=== PATIENT | female | born 1960 | race Caucasian/White ===

== ENCOUNTER 2018-12-23 15:04 | Observation (INO) ==
[2018-12-23] MEDS ORDERED: DROPERIDOL 5 MG/2 ML IVP ONE (15:32)
[2018-12-23] MEDS ORDERED: 0.9 % Sodium Chloride 1,000 ML IVC ONE (15:32)
[2018-12-23] MEDS ORDERED: Ketorolac 30 MG/ML VIAL IVP ONE (15:32)
[2018-12-23] MEDS ORDERED: *HR* FentaNYL (PF) 100 MCG/2 ML VIAL IVP ONE ×2 (15:32→18:13)
--- NOTE | 2018-12-23 15:43 | Emergency Department Note ---
Disposition Clinical Impression: Intractable back pain Intractable vomiting with nausea Qualifiers: Vomiting type: unspecified Qualified Code(s): R11.2 - Nausea with vomiting, unspecified Disposition: Admitted As Inpatient Condition: Fair Referrals: NONE,PCP [Non-Partnered Physician] - Forms: ED Satisfaction Letter Time of Disposition: 17:18 Back Pain HPI - General Chief Complaint: ED Back Pain/Injury Stated Complaint: mid back pain Time Seen by Provider: 12/23/18 15:18 Source: patient Mode of arrival: private vehicle Limitations: no limitations Nursing Notes Reviewed: Yes Vital Signs Reviewed: Yes - History of Present Illness Pt Subjective Complaint: back pain Onset (ago): hour(s) (This current episode started in the early hours of the morning and woke her up from sleep. However she been having trouble with this 3 and 4 times a month for years.) Duration: constant Similar Symptoms Previously: Yes (Multiple, multiple times) Location: thoracic spine, Other (Right side of thoracic back) Pain Severity: severe Quality: sharp Radiation: none Improves with: none Worsens with: none Context: other (Woke her from sleep) Associated symptoms: Reports: other (Nausea and at times pain is so severe she throws up) Treatments prior to arrival: other (Massage therapy) - Related Data Home Medications Medication Instructions Recorded Confirmed Aspirin 81 mg PO DAILY 05/24/15 12/23/18 Atorvastatin Calcium [Lipitor] 80 mg PO DAILY #0 05/24/15 12/23/18 Insulin ASPART [NovoLOG] 10 units SQ TIDAC PRN 05/24/15 12/23/18 Insulin Glargine,Hum.rec.anlog 40 unit SQ QAM 05/24/15 12/23/18 [Lantus Solostar] Metoprolol [Lopressor] 25 mg PO BID 05/24/15 12/23/18 Basaglar Kwikpen U-100 45 unit SQ BID 05/24/18 12/23/18 Previous Rx's Medication Instructions Recorded Promethazine [Phenergan] 25 mg PO Q6HR PRN #12 tablet 10/07/18 Allergies Allergy/AdvReac Type Severity Reaction Status Date / Time codeine AdvReac Vomiting Verified 12/23/18 15:04 All systems ED: reviewed and negative except as stated. Constitutional: Denies: fever, chills ENT ED: Denies: ear pain, throat pain, congestion Cardiovascular: Denies: chest pain, palpitations Respiratory: Denies: cough, dyspnea Gastrointestinal: Reports: nausea, vomiting. Denies: abdominal pain Genitourinary: Denies: urgency, dysuria, frequency Musculoskeletal: Reports: back pain Integumentary: Denies: rash Neurological: Denies: headache, weakness, numbness Past Medical History - Past Medical History Attestation: Yes The following information was validated with the patient. Source: patient, old records reviewed, obtained from family, nursing notes reviewed Medical history: Reports: arthritis, atrial fibrillation, cancer, cardiomyopathy, COPD, coronary artery disease, diabetes, GERD, glaucoma, hyperlipidemia, hypertension, migraine, myocardial infarction, osteoporosis, peripheral artery disease, RA, other Surgical history: Reports: angioplasty/stent (Cardiac stent 2), , cancer surgery (LEEP), cataract, cholecystectomy, other (Normal EGD in 2013 in 2016) Psychiatric history: Reports: panic disorder [employer] history: Reports: bilateral tubal ligation - Social History Smoking Status: Former smoker Smokeless Tobacco Status: No Alcohol use: Reports: none Drug use: Reports: marijuana, other Physical Exam - General Limitations: no limitations General appearance: alert, in no apparent distress - Head Head exam: atraumatic, normocephalic, normal inspection - Eye Eye exam: Present: normal appearance, PERRL, EOMI. Absent: scleral icterus, conjunctival injection - ENT ENT exam: normal exam, normal oropharynx, mucous membranes moist, normal external ear exam - Neck Neck exam: Present: normal inspection, full ROM, trachea midline. Absent: tenderness - Chest Chest inspection: Present: normal inspection, symmetric chest wall rise. Absent: tenderness - Respiratory Respiratory exam: Present: normal lung sounds bilaterally. Absent: respiratory distress, wheezes - Cardiovascular Cardiovascular exam: Present: regular rate, normal rhythm, normal heart sounds - Abdominal Exam Abdominal exam: Present: soft, Non-Tender, normal bowel sounds - Extremities Exam Extremities exam: Present: normal inspection. Absent: pedal edema - Back Exam Back exam: Present: normal inspection, full ROM. Absent: tenderness - Neurological Exam Neurological exam: Present: alert, oriented X3. Absent: motor sensory deficit - Psychiatric Psychiatric exam: Present: normal affect, normal mood - Skin Skin exam: Present: warm, dry. Absent: rash Course Course Narrative: Patient presents with a complaint of back pain. This is not a new problem for the patient. She has had it several times a month every month for the past few years. Looking at the old records she is had an extremely extensive workup done including CT to rule out aortic dissection and CT to look at pulmonary embolism and ABDOMINAL WORKUP AND NOTHING IS EVER BEEN FOUND A CAUSE. The patient is extremely histrionic here in the emergency department. She ambulated without any problem. Neurologic examination is fine. I cannot reproduce the discomfort. I really do not know what her issue is either. It has been going on For years and many many people have tried to evaluated and no 1 has been able to generate a final diagnosis. I am not sure I will be able to to find a diagnosis either. I will get her some medications for symptom relief. I will do some workup. Disposition will be based on diagnostic results and reevaluation. I will give her fentanyl and Toradol for pain. I am going to give her Haldol because I think that will help with the nausea and I think will help with the emotional component of her presentation. - Reevaluation(s) Reevaluation #1: The workup is unremarkable. Patient is still having severe pain and still retching and belching. I cannot make a diagnosis on this chronic problem but the problem is I can control her symptoms either. I am going to admit her to the hospital. Re: Spoke with the hospitalist, Dr. Atkinson, and he accepted the patient for admission to manage the intractable pain and intractable vomiting. Time: 17:17 Vital Signs Temperature 97.3 F L 12/23/18 15:06 Pulse Rate 89 12/23/18 15:06 Respiratory Rate 18 12/23/18 15:06 Blood Pressure 190/84 12/23/18 15:06 O2 Sat by Pulse Oximetry 95 12/23/18 15:06 Temperature 97.3 F L 12/23/18 15:06 Pulse Rate 87 12/23/18 16:07 Respiratory Rate 18 12/23/18 16:07 Blood Pressure 189/83 12/23/18 16:07 O2 Sat by Pulse Oximetry 95 12/23/18 16:07 Oxygen Delivery Oxygen Delivery Room Air Back Pain/Injury - Medical Records Medical records reviewed: Yes I reviewed the patient's medical records. - Lab Data Lab results reviewed: Yes I reviewed the patient's lab results. Result diagrams: 12/23/18 15:48 12/23/18 15:48 Lab Results 12/23/18 12/23/18 12/23/18 Range/Units 15:48 15:48 15:48 WBC 13.5 H (4.3-11.1) K/mcL RBC 4.54 (3.82-4.97) M/mcL Hgb 13.8 (11.5-15.4) g/dL Hct 42.1 (35.3-44.9) % MCV 92.7 (83.0-100.0) fL MCH 30.4 (28.0-33.3) pg MCHC 32.8 (31.6-35.5) g/dL RDW 14.2 (11.5-14.5) % Plt Count 162 (140-400) K/mcL MPV 11.8 (9.4-12.4) fL Immature Gran % 0.3 (0-4) % Seg Neutrophils % 83.2 % Lymphocytes % 13.2 % Monocytes % 2.4 % Eosinophils % 0.4 % Basophils % 0.5 % Neutrophils # 11.2 H (1.6-8.9) K/mcL Lymphocytes # 1.8 (0.6-4.6) K/mcL Monocytes # 0.3 (0.0-1.3) K/mcL Eosinophils # 0.1 (0.0-0.6) K/mcL Basophils # 0.1 (0.0-0.2) K/mcL Sodium 141 (136-145) mEq/L Potassium 4.1 (3.5-5.1) mEq/L Chloride 101 (98-107) mEq/L Carbon Dioxide 31 H (23-29) mEq/L BUN 25 H (8-23) mg/dL Creatinine 1.01 (0.60-1.20) mg/dL Est GFR ( Amer) > 60 (> 60) Est GFR (Non-Af Amer) 56 L (> 60) BUN/Creatinine Ratio 25 (6-26) Glucose 226 H (70-105) mg/dL Calculated Osmolality 303 H (280-300) Lactic Acid 1.1 (0.5-2.2) mmol/L Calcium 10.1 (8.6-10.3) mg/dL Total Bilirubin 0.5 (0.3-1.0) mg/dL Direct Bilirubin 0.0 (0.0-0.2) mg/dL Indirect Bilirubin 0.5 (0.0-1.2) mg/dL AST 19 (13-39) Units/L ALT 14 (7-52) Units/L Alkaline Phosphatase 123 H (34-104) Units/L Troponin I 0.03 (< 0.04) ng/mL Serum Total Protein 8.1 (6.4-8.9) g/dL Albumin 4.3 (3.5-5.7) g/dL Globulin 3.8 H (2.4-3.5) g/dL Albumin/Globulin Ratio 1.1 (1.1-2.2) Lipase 41 (11-82) Units/L - Radiology Data Radiology results reviewed: Yes I reviewed the patient's radiology results. - EKG Data EKG attestation: Yes I reviewed and interpreted this EKG. EKG results narrative: Twelve-lead EKG performed at 1530 9 PM. Ordered, reviewed and interpreted by ED physician shows sinus rhythm at a rate of 85. Normal axis. Good hour progression across the precordium. No acute ischemic changes. Intervals are within normal limits.
[2018-12-23] MEDS ORDERED: Haloperidol Lactate 5 MG/ML VIAL IVP ONE (15:49)
[2018-12-23 15:53] LABS: Basophils # 0.1 K/mcL (0.0-0.2); Basophils % 0.5 %; Eosinophils # 0.1 K/mcL (0.0-0.6); Eosinophils % 0.4 %; Hematocrit 42.1 % (35.3-44.9); Hemoglobin 13.8 g/dL (11.5-15.4); Immature Granulocytes % 0.3 % (0-4); Lymphocytes # 1.8 K/mcL (0.6-4.6); Lymphocytes % 13.2 %; Mean Corpuscular HGB Conc 32.8 g/dL (31.6-35.5); Mean Corpuscular Hemoglobin 30.4 pg (28.0-33.3); Mean Corpuscular Volume 92.7 fL (83.0-100.0); Mean Platelet Volume 11.8 fL (9.4-12.4); Monocytes # 0.3 K/mcL (0.0-1.3); Monocytes % 2.4 %; Neutrophils # 11.2 K/mcL (1.6-8.9); Platelet Count 162 K/mcL (140-400); Red Blood Count 4.54 M/mcL (3.82-4.97); Red Cell Distribution Width 14.2 % (11.5-14.5); Segmented Neutrophils % 83.2 %; White Blood Count 13.5 K/mcL (4.3-11.1)
[2018-12-23 16:10] LABS: Alanine Aminotransferase 14 Units/L (7-52); Albumin 4.3 g/dL (3.5-5.7); Albumin/Globulin Ratio 1.1 (1.1-2.2); Alkaline Phosphatase 123 Units/L (34-104); Aspartate Amino Transferase 19 Units/L (13-39); BUN/Creatinine Ratio 25 (6-26); Bilirubin,Indirect 0.5 mg/dL (0.0-1.2); Bilirubin,Total 0.5 mg/dL (0.3-1.0); Blood Urea Nitrogen 25 mg/dL (8-23); Calcium 10.1 mg/dL (8.6-10.3); Carbon Dioxide 31 mEq/L (23-29); Chloride 101 mEq/L (98-107); Globulin 3.8 g/dL (2.4-3.5); Glucose 226 mg/dL (70-105); Lipase 41 Units/L (11-82); Osmolality,Calculated 303 (280-300); Potassium 4.1 mEq/L (3.5-5.1); Sodium 141 mEq/L (136-145); Total Protein 8.1 g/dL (6.4-8.9); eGFR For African Americans > 60 (> 60); eGFR For Non-African Americans 56 (> 60)
[2018-12-23 16:15] LABS: Troponin I 0.03 ng/mL (< 0.04)
[2018-12-23] MEDS ORDERED: Naloxone 0.4 MG/ML INJ IVP PRN (18:05)
[2018-12-23] MEDS ORDERED: INSULIN ASPART 10 UNIT SQ PRN (18:05)
[2018-12-23] MEDS ORDERED: Ringers Solution, Lactated 1,000 ML IVC SCH (18:05)
[2018-12-23] MEDS ORDERED: Ondansetron 4 MG/2 ML VIAL IVP ONE (18:13)
[2018-12-23] MEDS ORDERED: Dextrose Gel 15 GM/37.5 ML TUBE PO PRN ×2 (18:45)
[2018-12-23] MEDS ORDERED: *HR* Dextrose 50 % in Water (Vial) 50 ML VIAL IVP PRN (18:45)
[2018-12-23] MEDS ORDERED: D5% in Water 1,000 ML IVC PRN (18:45)
[2018-12-23] MEDS ORDERED: *HR* HYDROcodone/Acet 5/325 mg TABLET PO PRN ×2 (18:57→22:51)
[2018-12-23] MEDS ORDERED: *HR* OxyCODONE Oral Soln 5 MG/5 ML UD.LIQ PO PRN (19:00)
[2018-12-23] MEDS: *HR* Promethazine 25 MG/ML VIAL IVP PRN (20:14)
[2018-12-23] MEDS: Insulin DETEMIR 100 UNIT/ML X5UNITS SQ SCH (20:14)
[2018-12-23] MEDS: Insulin LISPRO 300 UNITS/3 ML VIAL SQ SCH (20:22)
[2018-12-23] MEDS ORDERED: BASAGLAR U SQ SCH (21:00)
[2018-12-23] MEDS: *HR* HYDROcodone/Acet 5/325 mg TABLET PO PRN (23:18)
[2018-12-24] MEDS: *HR* Promethazine 25 MG/ML VIAL IVP PRN ×4 (01:32→20:07)
[2018-12-24] MEDS: *HR* HYDROcodone/Acet 5/325 mg TABLET PO PRN ×4 (03:30→21:09)
[2018-12-24] MEDS: Insulin DETEMIR 100 UNIT/ML X5UNITS SQ SCH ×2 (08:15→21:10)
[2018-12-24] MEDS: Aspirin 81 MG TAB.CHEW PO SCH (08:16)
[2018-12-24] MEDS: Insulin LISPRO 300 UNITS/3 ML VIAL SQ SCH ×4 (08:16→20:11)
--- NOTE | 2018-12-24 12:15 | Internal Med History&Physical ---
Date of Encounter: 12/24/18 Time of Encounter: 11:35 Assessment and Plan (1) Gastroenteritis Current visit: No Status: Acute IV fluids have been ordered. Antiemetics will be given as needed. (2) Azotemia Current visit: Yes Status: Acute Likely secondary to vomiting and diarrhea. IV fluids have been ordered. Labs will be monitored. (3) ASHD (arteriosclerotic heart disease) Current visit: No Status: Chronic Continue aspirin, Lipitor, and Lopressor. (4) Intractable back pain Current visit: Yes Status: Chronic Present since approximately 2012. Etiology undetermined. Internal Medicine - H&P: HPI Chief complaint: Vomiting, diarrhea, back pain. Admitted From: Emergency Dept Plans for Post Hospital Care: Home History of present illness: Ms. Taylor is a 58 year old female came to emergency room stating she had onset of vomiting and diarrhea approximately 0300 the day of admission. She denies visible blood in the vomitus or diarrhea. She denies fevers or chills. She was evaluated emergency room and was admitted to [facility] floor for ongoing care needs. She was hospitalized for similar complaints in April and June 2016. She reports she has had several episodes similar to this previously since undergoing cholecystectomy in 2012. She had EGD in 2013 and again in early 2015 without significant pathology seen. She had colonoscopy in 2013 with 2 colon polyps removed but otherwise no significant pathology noted. She had MRI of the abdomen 11/24/2014 which showed a stable left adrenal adenoma and stable benign pancreatic body cyst measuring 3 mm. She had a nuclear medicine gastric emptying study December 2015 which showed minimal delay in emptying at 4 hours postprandial. Abdominal/pelvic CT 10/07/2018 showed stable left adrenal mass unchanged from December 2016 but no acute findings to explain her abdominal/back pain. Past Med Surg Social Fam HX - Past Medical History Medical history: arthritis, atrial fibrillation, cancer, cardiomyopathy, COPD, coronary artery disease, diabetes, GERD, glaucoma, hyperlipidemia, hypertension, migraine, myocardial infarction, osteoporosis, peripheral artery disease, RA, other Additional medical history: Cervical cancer, Psychiatric history: panic disorder - Past Surgical History Surgical History: angioplasty/stent, , cancer surgery, cataract, cholecystectomy, other Additional surgical history: Triple Bypass 2017 - Social History Smoking Status: Former smoker Smokeless Tobacco Status: No Alcohol use: none Drug use: marijuana, other - Family History Father Adopted: No Family Member Ethnicity: Non- Living Status: Hx Family Cardiac Disorders: Yes ([place] at 58) Hx Family Respiratory Disorders: No Hx Family Cancer: No Hx Family GI Disorders: No Hx Family Endocrine Disorder: No Hx Family Neuromuscular Disorders: No Hx Family Neurologic Disorders: No Hx Family HEENT Disorders: No Hx Family Autoimmune Disorders: No Mother Adopted: No Family Member Ethnicity: Non- Living Status: Hx Family Cardiac Disorders: No Hx Family Respiratory Disorders: Yes Hx Family Cancer: Yes (Brain cancer) Hx Family GI Disorders: No Hx Family Endocrine Disorder: No Hx Family Neuromuscular Disorders: No Hx Family Neurologic Disorders: No Hx Family HEENT Disorders: No Hx Family Autoimmune Disorders: No Internal Medicine - H&P: Meds Aspirin 81 mg PO DAILY 05/24/15 [History] Atorvastatin Calcium [Lipitor] 80 mg PO DAILY #0 05/24/15 [History] Insulin ASPART [NovoLOG] 10 units SQ TIDAC PRN 05/24/15 [History] Insulin Glargine,Hum.rec.anlog [Lantus Solostar] 40 unit SQ QAM 05/24/15 [History] Metoprolol [Lopressor] 25 mg PO BID 05/24/15 [History] Basaglar Kwikpen U-100 45 unit SQ BID 05/24/18 [History] Promethazine [Phenergan] 25 mg PO Q6HR PRN #12 tablet 10/07/18 [Rx] Allergy/AdvReac Type Severity Reaction Status Date / Time codeine AdvReac Vomiting Verified 12/23/18 15:04 All Systems PM: A 10-system review of systems was performed and is negative for pertinent findings except as documented above in the HPI. Review of systems: Uterus systems from her June 2016 [facility] hospitalization were reviewed and revised as below. Gen.: Her weight has increased from 82.1 kg June 2016 to 86.636 kg on admission now. Cardiovascular: She has history of hypertension and known ASHD status post [place] in 1999 and in October 2014. She had heart catheterizations after each infarct and has a total of [address]. She reports having 3 vessel CABG surgery at [facility] January 2017. She denies heart failure DVT or pulmonary embolus Respiratory: She smoked from age [age] up to 3 packs per day. She does not have documented chronic lung disease and does not wear home oxygen. She has not been tested for sleep apnea. GI: As per history of present illness : She denies hematuria dysuria or kidney stones Neurologic: She denies large distribution strokes or seizures Endocrine: She was diagnosed DM 2 approximately 2000. She has hyperlipidemia and denies known thyroid disease Hematology/oncology: She had cervical cancer and was treated with a LEEP procedure many years ago which apparently was curative. She denies other internal malignancies, blood disorders or anemia Psychiatric: She denies anxiety depression or other mental health issues Musculoskeletal: She has diagnoses of DJD and rheumatoid arthritis. - Constitutional Vitals: Temp Pulse Resp BP Pulse Ox 98.5 F 81 16 181/79 97 12/24/18 10:00 12/24/18 10:00 12/24/18 10:00 12/24/18 10:12/24/18 10:00 Exam: Gen.: She is a well-developed well-nourished female sitting in bed who is nauseated and occasionally having dry heaves during the exam HEENT: Head is atraumatic and normocephalic. Eyes: EOMI. There is no scleral icterus. Mouth: Mucosa is moist. Neck: Supple and nontender. There is no thyromegaly or adenopathy noted. Heart: Regular without murmurs gallops or ectopics Lungs: No wheezes or crackles are heard. Abdomen: Bowel sounds are diminished. The abdomen is nontender to palpation. No masses or guarding are noted. Extremities: There is no cyanosis edema or clubbing noted. Dorsalis pedis and posterior tibial pulses are 1-2 over 2 bilaterally. Neurologic: Mental status: She is talkative and a good historian. Cranial nerves: Smile is symmetric. Forehead wrinkles bilaterally. Tongue protrudes midline. EOMI. Motor: There is no pronator drift. Cerebellar: Finger to nose is intact bilaterally. Skin: Warm and dry Internal Med - H&P Results - Labs CBC & Chem 7: 12/23/18 15:48 12/23/18 15:48 Labs: Short CBC 12/23/18 Range/Units 15:48 WBC 13.5 H (4.3-11.1) K/mcL Hgb 13.8 (11.5-15.4) g/dL Hct 42.1 (35.3-44.9) % Plt Count 162 (140-400) K/mcL Neutrophils # 11.2 H (1.6-8.9) K/mcL BMP 12/23/18 15:48 Sodium 141 Potassium 4.1 Chloride 101 Carbon Dioxide 31 H BUN 25 H Creatinine 1.01 Glucose 226 H Calcium 10.1 Cardiac Enzymes 12/23/18 Range/Units 15:48 Troponin I 0.03 (< 0.04) ng/mL Liver Function 12/23/18 Range/Units 15:48 Total Bilirubin 0.5 (0.3-1.0) mg/dL Direct Bilirubin 0.0 (0.0-0.2) mg/dL AST 19 (13-39) Units/L ALT 14 (7-52) Units/L Alkaline Phosphatase 123 H (34-104) Units/L Albumin 4.3 (3.5-5.7) g/dL - Impressions ITS Impressions Chest X-Ray 12/23/18 15:31 IMPRESSION: No acute cardiopulmonary process. D/ / Dami Lazar MD / Dami Lazar MD Interpreting Provider: Dami Lazar MD
--- NOTE | 2018-12-24 12:25 | Electrocardiograph Report ---
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
[2018-12-24] MEDS ORDERED: Methyl Salicylate/Menthol 28 GM TUBE TP PRN (19:40)
[2018-12-25] MEDS: *HR* Promethazine 25 MG/ML VIAL IVP PRN (06:27)
[2018-12-25 07:10] LABS: Basophils # 0.1 K/mcL (0.0-0.2); Basophils % 0.4 %; Eosinophils # 0.1 K/mcL (0.0-0.6); Eosinophils % 0.7 %; Hematocrit 38.6 % (35.3-44.9); Hemoglobin 13.3 g/dL (11.5-15.4); Immature Granulocytes % 0.3 % (0-4); Lymphocytes # 4.9 K/mcL (0.6-4.6); Lymphocytes % 31.5 %; Mean Corpuscular HGB Conc 34.5 g/dL (31.6-35.5); Mean Platelet Volume 11.3 fL (9.4-12.4); Monocytes # 1.1 K/mcL (0.0-1.3); Neutrophils # 9.3 K/mcL (1.6-8.9); Platelet Count 136 K/mcL (140-400); Red Blood Count 4.29 M/mcL (3.82-4.97); Segmented Neutrophils % 60.1 %; White Blood Count 15.5 K/mcL (4.3-11.1)
[2018-12-25 07:14] LABS: Bilirubin,Urine Negative (Negative); Blood,Urine Moderate (Negative); Clarity,Urine Clear (Clear); Color,Urine Yellow (Yellow); Glucose,Urine (UA) Normal (Normal); Ketones,Urine Negative (Negative); Leukocyte Esterase,Urine Negative (Negative); Nitrite,Urine Negative (Negative); Protein,Urine >=300 mg/dL (Neg-Trace); Urobilinogen,Urine Normal (Normal)
[2018-12-25] MEDS: Insulin LISPRO 300 UNITS/3 ML VIAL SQ SCH ×2 (07:14→11:48)
[2018-12-25 07:26] LABS: Amphetamine Screen,Urine Negative ng/mL (Cutoff=1000); Barbiturate Screen,Urine Negative ng/mL (Cutoff=200); Benzodiazepines Screen,Urine Positive ng/mL (Cutoff=200); Cannabinoid Screen,Urine Positive ng/mL (Cutoff = 50); Cocaine Screen,Urine Negative ng/mL (Cutoff= 300); Opiate Screen,Urine Positive ng/mL (Cutoff=300); Phencyclidine Screen,Urine Negative ng/mL (Cutoff=25)
[2018-12-25 07:37] LABS: Potassium 2.9 mEq/L (3.5-5.1)
[2018-12-25 08:05] LABS: RBC,Urine 15-30 per hpf (0-3); WBC,Urine 0-3 per hpf (0-3)
[2018-12-25 08:06] LABS: Bacteria,Urine Few per hpf (None-Few); Squamous Epithelial Cell,Urine Few per lpf (None-Few)
[2018-12-25 08:13] LABS: BUN/Creatinine Ratio 25 (6-26); Blood Urea Nitrogen 22 mg/dL (8-23); Calcium 8.9 mg/dL (8.6-10.3); Carbon Dioxide 32 mEq/L (23-29); Chloride 98 mEq/L (98-107); Glucose 60 mg/dL (70-105); Magnesium 1.5 mg/dL (1.6-2.6); Osmolality,Calculated 287 (280-300); Phosphorous 2.9 mg/dL (2.7-4.5); Sodium 138 mEq/L (136-145); eGFR For African Americans > 60 (> 60); eGFR For Non-African Americans > 60 (> 60)
[2018-12-25 08:26] VITALS: BP 158/78
[2018-12-25] MEDS: Aspirin 81 MG TAB.CHEW PO SCH (08:26)
[2018-12-25] MEDS: Insulin DETEMIR 100 UNIT/ML X5UNITS SQ SCH (09:37)
--- NOTE | 2018-12-25 14:41 | Discharge Summary ---
Orders not resulted at time of discharge: Pending orders 12/25/18 03:50 Culture,Urine [RM] Routine Date of Encounter: 12/25/18 Time of Encounter: 14:30 - Discharge Diagnosis (1) Gastroenteritis Priority: Primary Status: Acute (2) Azotemia Priority: Secondary Status: Resolved (3) ASHD (arteriosclerotic heart disease) Priority: Secondary Status: Chronic (4) Intractable back pain Priority: Secondary Status: Chronic Hospital course: Ms. Taylor is a 58 year old female who came to emergency room stating she had onset of vomiting and diarrhea approximately 0300 the day of admission. She denies visible blood in the vomitus or diarrhea. She denies fevers or chills. She was evaluated in emergency room and was admitted to [facility] for ongoing care needs. Initial orders were written by the emergency room physician. I saw her on December 24 and performed a history and physical. She was given IV fluids. Anti-emetics were given as needed. When I saw her on December 25 she reported vomiting and diarrhea had resolved. She had tolerated adequate amounts of oral food and fluid intake. She wished to be discharged home which I felt was reasonable. Potassium level had decreased to 2.9 the morning of December 25. She was given oral and IV potassium supplementation and her level improved to 3.5 by time of discharge. Magnesium level was minimally abnormal at 1.5. Her PCP can monitor labs and prescribe further treatment is needed. She will follow with her PCP Manoj Jay CNP within 1 week. - Time Spent with Patient Total time spent providing and/or coordinating discharge services: - Discharge Medications Prescriptions: Continued Metoprolol [Lopressor] 25 mg PO BID Atorvastatin Calcium [Lipitor] 80 mg PO DAILY #0 Insulin Glargine,Hum.rec.anlog [Lantus Solostar] 40 unit SQ QAM Aspirin 81 mg PO DAILY Insulin ASPART [NovoLOG] 10 units SQ TIDAC PRN PRN Reason: Blood Sugar - High Basaglar Kwikpen U-100 45 unit SQ BID Promethazine [Phenergan] 25 mg PO Q6HR PRN #12 tablet PRN Reason: Nausea Home Medications: Aspirin 81 mg PO DAILY 05/24/15 [History] Atorvastatin Calcium [Lipitor] 80 mg PO DAILY #0 05/24/15 [History] Insulin ASPART [NovoLOG] 10 units SQ TIDAC PRN 10/28/15 [History] Insulin Glargine,Hum.rec.anlog [Lantus Solostar] 40 unit SQ QAM 05/24/15 [History] Metoprolol [Lopressor] 25 mg PO BID 05/24/15 [History] Basaglar Kwikpen U-100 45 unit SQ BID 05/24/18 [History] Promethazine [Phenergan] 25 mg PO Q6HR PRN #12 tablet 10/07/18 [Rx] Allergies/Adverse Reactions: Allergy/AdvReac Type Severity Reaction Status Date / Time codeine AdvReac Vomiting Verified 12/23/18 15:04 Date of admission: 12/23/18 17:57 Primary care physician: Manoj Jay CNP - Constitutional Vitals: Temp Pulse Resp BP Pulse Ox 97.6 F 73 17 158/78 92 12/25/18 07:12 12/25/18 08:25 12/25/18 07:12 12/25/18 08:25 12/25/18 07:12 - Patient Status Disposition: Home, Self-Care Condition: Fair - Discharge Instructions Follow Up With: Manoj Jay CNP [Primary Care Provider] - 1 week - Diet and Activity Activity: resume usual activities as tolerated Diet: advance to your usual diet
== END 2018-12-25 14:30 | disposition home or self-care (01) ==
LOC: EMEROOPIK 15:04 → INPPIK 15:04
PROVIDERS: ADMIT Internal Medicine; ATTEND Internal Medicine

== ENCOUNTER 2019-03-22 11:48 | Observation (INO) ==
[2019-03-22] MEDS ORDERED: *HR* HYDROmorphone (PF) 1 MG/ML SYRINGE IVP ONE (12:03)
[2019-03-22] MEDS ORDERED: 0.9 % Sodium Chloride 1,000 ML IVC ONE (12:03)
[2019-03-22] MEDS ORDERED: Ondansetron 4 MG/2 ML VIAL IVP ONE (12:03)
--- NOTE | 2019-03-22 12:03 | Emergency Department Note ---
Disposition Clinical Impression: Intractable back pain Intractable vomiting with nausea Qualifiers: Vomiting type: unspecified Qualified Code(s): R11.2 - Nausea with vomiting, unspecified Disposition: Admitted As Inpatient Condition: Fair Referrals: Manoj Jay CNP [Primary Care Provider] - Forms: ED Satisfaction Letter Time of Disposition: 13:39 General Adult HPI - General Chief complaint: ED Abdominal Pain Stated complaint: vomiting and back pain Time Seen by Provider: 03/22/19 11:55 Source: patient Mode of arrival: private vehicle Limitations: no limitations Nursing Notes Reviewed: Yes Vital Signs Reviewed: Yes - History of Present Illness HPI Narrative: Patient reports she has a history of chronic low back pain has been much worse since slipping and falling into a seated position at about 2:00 yesterday afternoon. She relates concurrently for today she is been having some diarrhea without blood or mucus. She has started having nausea and vomiting since 3 AM. This is exacerbated the pain in her back such that she cannot get any relief with topical applications, massage or her usual medicines. She denies any ill exposures. She denies foodborne illness concerns or recent antibiotics or travel. She denies fevers or chills. She is not having chest pain, cough or shortness of breath. She states her abdomen is sore from the vomiting but no other abdominal pain. With inability control the pain and continued nausea and dry heaving she has come in for evaluation with family. Onset (ago): day(s) (1) Location: back, abdomen Pain Severity: severe Pain Scale: 10 Quality: aching, sharp Consistency: constant Improves with: nothing Worsens with: movement Associated symptoms: Reports: loss of appetite, malaise, nausea/vomiting. Denies: confusion, chest pain, cough, diaphoresis, fever/chills, headaches, rash, seizure, shortness of breath, syncope, weakness Treatments Prior to Arrival: none - Related Data Home Medications Medication Instructions Recorded Confirmed Aspirin 81 mg PO DAILY 05/24/15 12/23/18 Atorvastatin Calcium [Lipitor] 80 mg PO DAILY #0 05/24/15 12/23/18 Insulin ASPART [NovoLOG] 10 units SQ TIDAC PRN 05/24/15 12/23/18 Insulin Glargine,Hum.rec.anlog 40 unit SQ QAM 05/24/15 12/23/18 [Lantus Solostar] Metoprolol [Lopressor] 25 mg PO BID 05/24/15 12/23/18 Basaglar Kwikpen U-100 45 unit SQ BID 05/24/18 12/23/18 Metoclopramide [Reglan] 10 mg PO 03/22/19 Allergies Allergy/AdvReac Type Severity Reaction Status Date / Time codeine AdvReac Vomiting Verified 03/22/19 11:49 All systems ED: reviewed and negative except as stated. Past Medical History - Past Medical History Attestation: Yes The following information was validated with the patient. Source: patient, old records reviewed, obtained from family, nursing notes reviewed Medical history: Reports: arthritis, atrial fibrillation, cancer, cardiomyopathy, COPD, coronary artery disease, diabetes, GERD, glaucoma, hyperlipidemia, hypertension, migraine, myocardial infarction, osteoporosis, peripheral artery disease, RA, other (Chronic low back pain) Surgical history: Reports: angioplasty/stent, , cancer surgery, cataract, cholecystectomy, other Psychiatric history: Reports: panic disorder [employer] history: Reports: bilateral tubal ligation - Social History Smoking Status: Former smoker Smokeless Tobacco Status: No Alcohol use: Reports: none Drug use: Reports: marijuana, other Physical Exam - General Limitations: no limitations General appearance: alert, in distress - Head Head exam: atraumatic, normocephalic, normal inspection - Eye Eye exam: Present: normal appearance, PERRL, EOMI - ENT ENT exam: normal exam, normal oropharynx, mucous membranes moist - Neck Neck exam: Present: normal inspection, full ROM, trachea midline - Chest Chest inspection: Present: normal inspection, symmetric chest wall rise. Absent: tenderness - Respiratory Respiratory exam: Present: normal lung sounds bilaterally. Absent: respiratory distress, wheezes, prolonged expiratory phase - Cardiovascular Cardiovascular exam: Present: regular rate, normal rhythm, tachycardia, normal heart sounds - Abdominal Exam Abdominal exam: Present: soft, normal bowel sounds. Absent: distention, guarding, rebound, rigidity Abdominal tenderness: Present: diffuse, mild - Extremities Exam Extremities exam: Present: normal inspection, full ROM, normal capillary refill. Absent: tenderness, pedal edema - Expanded Lower Extremity Exam Neurovascular/Tendon exam: Present: normal capillary refill Gait: observed and normal, antalgic - Back Exam Back exam: Present: normal inspection, paraspinal tenderness, vertebral tend erness - Neurological Exam Neurological exam: Present: alert, oriented X3, normal gait. Absent: motor sensory deficit - Psychiatric Psychiatric exam: Present: agitated, anxious - Skin Skin exam: Present: warm, dry, intact, normal color. Absent: diaphoresis, pallor Course Course Narrative: 1325: With return of all testing, the patient is still vomiting. She notes she has been like this number of times it improves with continued IV fluids and inpatient care. I have reviewed the records and it has been about 3 months since she required admission. We are checking for bed availability with plan to call Dr. Atkinson to discuss inpatient observation if beds are available. 1333: Care has been discussed with Dr. Atkinson. Verbal orders have been obtained for the patient's observation. Vital Signs Temperature 98.4 F 03/22/19 11:51 Pulse Rate 102 03/22/19 11:51 Respiratory Rate 22 03/22/19 11:51 Blood Pressure 155/77 03/22/19 11:51 O2 Sat by Pulse Oximetry 93 03/22/19 11:51 Temperature 98.4 F 03/22/19 12:00 Pulse Rate 102 03/22/19 12:00 Respiratory Rate 22 03/22/19 12:00 Blood Pressure 155/77 03/22/19 12:00 O2 Sat by Pulse Oximetry 93 03/22/19 12:00 Oxygen Delivery Oxygen Delivery Room Air Medical Decision Making - Medical Records Medical records reviewed: Yes I reviewed the patient's medical records. - Lab Data Lab results reviewed: Yes I reviewed the patient's lab results. Result diagrams: 03/22/19 12:14 03/22/19 12:14 Lab Results 03/22/19 03/22/19 03/22/19 Range/Units 12:00 12:00 12:14 WBC 16.8 H (4.3-11.1) K/mcL RBC 4.28 (3.82-4.97) M/mcL Hgb 13.0 (11.5-15.4) g/dL Hct 40.4 (35.3-44.9) % MCV 94.4 (83.0-100.0) fL MCH 30.4 (28.0-33.3) pg MCHC 32.2 (31.6-35.5) g/dL RDW 14.3 (11.5-14.5) % Plt Count 155 (140-400) K/mcL MPV 11.8 (9.4-12.4) fL Immature Gran % 0.6 (0-4) % Seg Neutrophils % 84.1 % Lymphocytes % 11.3 % Monocytes % 2.7 % Eosinophils % 0.8 % Basophils % 0.5 % Neutrophils # 14.1 H (1.6-8.9) K/mcL Lymphocytes # 1.9 (0.6-4.6) K/mcL Monocytes # 0.5 (0.0-1.3) K/mcL Eosinophils # 0.1 (0.0-0.6) K/mcL Basophils # 0.1 (0.0-0.2) K/mcL Sodium (136-145) mEq/L Potassium (3.5-5.1) mEq/L Chloride (98-107) mEq/L Carbon Dioxide (23-29) mEq/L BUN (8-23) mg/dL Creatinine (0.60-1.20) mg/dL Est GFR ( Amer) (> 60) Est GFR (Non-Af Amer) (> 60) BUN/Creatinine Ratio (6-26) Glucose (70-105) mg/dL Calculated Osmolality (280-300) Calcium (8.6-10.3) mg/dL Total Bilirubin (0.3-1.0) mg/dL Direct Bilirubin (0.0-0.2) mg/dL Indirect Bilirubin (0.0-1.2) mg/dL AST (13-39) Units/L ALT (7-52) Units/L Alkaline Phosphatase (34-104) Units/L Serum Total Protein (6.4-8.9) g/dL Albumin (3.5-5.7) g/dL Globulin (2.4-3.5) g/dL Albumin/Globulin Ratio (1.1-2.2) Amylase (29-103) Units/L Lipase (11-82) Units/L Urine Color Yellow (Yellow) Urine Clarity Clear (Clear) Urine pH 5.0 (5.0-8.0) pH Units Ur Specific [place] >= 1.030 H (1.010-1.025) Urine Protein 100 H (Neg-Trace) mg/dL Urine Glucose (UA) Normal (Normal) mg/dL Urine Ketones Trace H (Negative) mg/dL Urine Blood Large H (Negative) Urine Nitrite Negative (Negative) Urine Bilirubin Negative (Negative) Urine Urobilinogen Normal (Normal) mg/dL Ur Leukocyte Esterase Negative (Negative) Urine Microscopic RBC 5-15 H (0-3) per hpf Urine Microscopic WBC 3-5 H (0-3) per hpf Ur Squamous Epith Cells Moderate H (None-Few) per lpf Urine Bacteria Few (None-Few) per hpf Hyaline Casts Few (None-Few) per lpf Urine Mucus Few (Few) Ur Culture Indicated? YES A (NO) Urine Opiates Screen Positive H (Ifhfuv=888) ng/mL Ur Buprenorphine Scrn Negative (Cutoff=5) ng/mL Ur Oxycodone Screen Negative (Cutoff= 100) ng/mL Ur Barbiturates Screen Negative (Htkjpm=919) ng/mL Ur Phencyclidine Scrn Negative (Cutoff=25) ng/mL Ur Amphetamines Screen Negative (Ophsxc=9535) ng/mL U Benzodiazepines Scrn Negative (Nujbed=567) ng/mL Urine Cocaine Screen Negative (Cutoff= 300) ng/mL U Marijuana (THC) Screen Positive H (Cutoff = 50) ng/mL Ur Drug Screen Interp See Below 03/22/19 Range/Units 12:14 WBC (4.3-11.1) K/mcL RBC (3.82-4.97) M/mcL Hgb (11.5-15.4) g/dL Hct (35.3-44.9) % MCV (83.0-100.0) fL MCH (28.0-33.3) pg MCHC (31.6-35.5) g/dL RDW (11.5-14.5) % Plt Count (140-400) K/mcL MPV (9.4-12.4) fL Immature Gran % (0-4) % Seg Neutrophils % % Lymphocytes % % Monocytes % % Eosinophils % % Basophils % % Neutrophils # (1.6-8.9) K/mcL Lymphocytes # (0.6-4.6) K/mcL Monocytes # (0.0-1.3) K/mcL Eosinophils # (0.0-0.6) K/mcL Basophils # (0.0-0.2) K/mcL Sodium 143 (136-145) mEq/L Potassium 4.1 (3.5-5.1) mEq/L Chloride 106 (98-107) mEq/L Carbon Dioxide 29 (23-29) mEq/L BUN 36 H (8-23) mg/dL Creatinine 1.23 H (0.60-1.20) mg/dL Est GFR ( Amer) 54 L (> 60) Est GFR (Non-Af Amer) 45 L (> 60) BUN/Creatinine Ratio 29 H (6-26) Glucose 197 H (70-105) mg/dL Calculated Osmolality 310 H (280-300) Calcium 9.8 (8.6-10.3) mg/dL Total Bilirubin 0.4 (0.3-1.0) mg/dL Direct Bilirubin 0.1 (0.0-0.2) mg/dL Indirect Bilirubin 0.3 (0.0-1.2) mg/dL AST 25 (13-39) Units/L ALT 20 (7-52) Units/L Alkaline Phosphatase 118 H (34-104) Units/L Serum Total Protein 7.3 (6.4-8.9) g/dL Albumin 4.2 (3.5-5.7) g/dL Globulin 3.1 (2.4-3.5) g/dL Albumin/Globulin Ratio 1.4 (1.1-2.2) Amylase 45 (29-103) Units/L Lipase 28 (11-82) Units/L Urine Color (Yellow) Urine Clarity (Clear) Urine pH (5.0-8.0) pH Units Ur Specific [place] (1.010-1.025) Urine Protein (Neg-Trace) mg/dL Urine Glucose (UA) (Normal) mg/dL Urine Ketones (Negative) mg/dL Urine Blood (Negative) Urine Nitrite (Negative) Urine Bilirubin (Negative) Urine Urobilinogen (Normal) mg/dL Ur Leukocyte Esterase (Negative) Urine Microscopic RBC (0-3) per hpf Urine Microscopic WBC (0-3) per hpf Ur Squamous Epith Cells (None-Few) per lpf Urine Bacteria (None-Few) per hpf Hyaline Casts (None-Few) per lpf Urine Mucus (Few) Ur Culture Indicated? (NO) Urine Opiates Screen (Fhvlua=567) ng/mL Ur Buprenorphine Scrn (Cutoff=5) ng/mL Ur Oxycodone Screen (Cutoff= 100) ng/mL Ur Barbiturates Screen (Awwztz=124) ng/mL Ur Phencyclidine Scrn (Cutoff=25) ng/mL Ur Amphetamines Screen (Qmywzh=3562) ng/mL U Benzodiazepines Scrn (Hrmqxh=798) ng/mL Urine Cocaine Screen (Cutoff= 300) ng/mL U Marijuana (THC) Screen (Cutoff = 50) ng/mL Ur Drug Screen Interp - Radiology Data Radiology results reviewed: Yes I reviewed the patient's radiology results. CT is performed of the abdomen and pelvis without IV or oral contrast. This shows the basal lungs be free of infiltrates, effusion or mass. The liver, spleen and pancreas appear normal. Kidneys shows some stranding without evidence for hydroureter or stone. Aorta is normal in caliber. Bowel is without acute inflammatory change, obstruction or perforation. Spinous without compression, acute disc space protrusion nor spondylolysis/listhesis. This is on my interpretation. Impressions Abdomen/Pelvis CT 03/22/19 12:03 IMPRESSION: No acute intra-abdominal abnormality identified. Specifically no traumatic injury identified. No finding worrisome for metastatic disease on the noncontrast images. D/ / Luis Enrique Lindsey MD / Luis Enrique Lindsey MD Interpreting Provider: Luis Enrique Lindsey MD
[2019-03-22 12:05] LABS: Bilirubin,Urine Negative (Negative); Blood,Urine Large (Negative); Clarity,Urine Clear (Clear); Color,Urine Yellow (Yellow); Glucose,Urine (UA) Normal (Normal); Ketones,Urine Trace mg/dL (Negative); Leukocyte Esterase,Urine Negative (Negative); Nitrite,Urine Negative (Negative); Protein,Urine 100 mg/dL (Neg-Trace); Specific Gravity,Urine >= 1.030 (1.010-1.025); Urobilinogen,Urine Normal (Normal)
[2019-03-22 12:13] LABS: Bacteria,Urine Few per hpf (None-Few); Hyaline Casts,Urine Few per lpf (None-Few); Mucus,Urine Few (Few); Squamous Epithelial Cell,Urine Moderate per lpf (None-Few)
[2019-03-22] MEDS ORDERED: 0.9 % Sodium Chloride 1,000 ML IVC SCH ×2 (12:15→14:14)
[2019-03-22 12:20] LABS: Basophils # 0.1 K/mcL (0.0-0.2); Basophils % 0.5 %; Eosinophils # 0.1 K/mcL (0.0-0.6); Eosinophils % 0.8 %; Hematocrit 40.4 % (35.3-44.9); Immature Granulocytes % 0.6 % (0-4); Lymphocytes # 1.9 K/mcL (0.6-4.6); Lymphocytes % 11.3 %; Mean Corpuscular HGB Conc 32.2 g/dL (31.6-35.5); Mean Corpuscular Hemoglobin 30.4 pg (28.0-33.3); Mean Corpuscular Volume 94.4 fL (83.0-100.0); Mean Platelet Volume 11.8 fL (9.4-12.4); Monocytes # 0.5 K/mcL (0.0-1.3); Monocytes % 2.7 %; Neutrophils # 14.1 K/mcL (1.6-8.9); Platelet Count 155 K/mcL (140-400); Red Blood Count 4.28 M/mcL (3.82-4.97); Red Cell Distribution Width 14.3 % (11.5-14.5); Segmented Neutrophils % 84.1 %; White Blood Count 16.8 K/mcL (4.3-11.1)
[2019-03-22 12:21] LABS: Amphetamine Screen,Urine Negative ng/mL (Cutoff=1000); Barbiturate Screen,Urine Negative ng/mL (Cutoff=200); Benzodiazepines Screen,Urine Negative ng/mL (Cutoff=200); Cannabinoid Screen,Urine Positive ng/mL (Cutoff = 50); Cocaine Screen,Urine Negative ng/mL (Cutoff= 300); Opiate Screen,Urine Positive ng/mL (Cutoff=300); Phencyclidine Screen,Urine Negative ng/mL (Cutoff=25)
[2019-03-22 12:32] LABS: Albumin 4.2 g/dL (3.5-5.7); Albumin/Globulin Ratio 1.4 (1.1-2.2); Bilirubin,Direct 0.1 mg/dL (0.0-0.2); Bilirubin,Indirect 0.3 mg/dL (0.0-1.2); Bilirubin,Total 0.4 mg/dL (0.3-1.0); Calcium 9.8 mg/dL (8.6-10.3); Globulin 3.1 g/dL (2.4-3.5); Potassium 4.1 mEq/L (3.5-5.1); Total Protein 7.3 g/dL (6.4-8.9)
[2019-03-22] MEDS ORDERED: *HR* Promethazine 25 MG/ML VIAL IVP ONE (13:29)
[2019-03-22] MEDS ORDERED: *HR* Dextrose 50 % in Water (Syg) 50 ML SYRINGE IVP PRN (14:14)
[2019-03-22] MEDS ORDERED: Naloxone 0.4 MG/ML INJ IVP PRN (14:14)
[2019-03-22] MEDS ORDERED: Ondansetron 4 MG/2 ML VIAL IVP PRN (14:14)
[2019-03-22] MEDS ORDERED: Dextrose Gel 15 GM/37.5 ML TUBE PO PRN ×2 (14:14)
[2019-03-22] MEDS ORDERED: *HR* Promethazine 25 MG/ML VIAL IVP PRN (14:14)
[2019-03-22] MEDS ORDERED: D5% in Water 1,000 ML IVC PRN (14:14)
[2019-03-22] MEDS ORDERED: Acetaminophen 325 MG TABLET PO PRN (15:22)
[2019-03-22] MEDS: Ondansetron 4 MG/2 ML VIAL IVP PRN ×2 (15:46→22:09)
[2019-03-22] MEDS: Insulin LISPRO 300 UNITS/3 ML VIAL SQ SCH (17:04)
[2019-03-22] MEDS ORDERED: Ondansetron ODT 4 MG TAB.RAPDIS SL PRN (17:49)
[2019-03-22] MEDS: *HR* Promethazine 25 MG/ML VIAL IVP PRN (19:23)
--- NOTE | 2019-03-22 19:31 | Internal Med History&Physical ---
Date of Encounter: 03/22/19 Time of Encounter: 19:00 Assessment and Plan (1) Gastroenteritis Current visit: No Status: Acute IV fluids have been ordered. Antibiotics will be given as needed. (2) Azotemia Current visit: No Status: Acute IV fluids have been ordered. Recheck labs in a.m. (3) Intractable back pain Current visit: Yes Status: Chronic Workup has shown no etiology to date. (4) Leukocytosis Current visit: Yes Status: Chronic Present on all 38 CBC tests done since February 2014. Neutrophilia variably present. Qualifiers: Leukocytosis type: unspecified Qualified Code(s): D72.829 - Elevated white blood cell count, unspecified (5) Hypomagnesemia Current visit: Yes Status: Acute Magnesium level 1.5 on 12/25/2018. Recheck in a.m. (6) Diarrhea Current visit: No Status: Chronic IV fluids have been ordered. Lactoferrin will be ordered. Additional studies will be done if diarrhea persists. Qualifiers: Diarrhea type: unspecified type Qualified Code(s): R19.7 - Diarrhea, unsp ecified (7) ASHD (arteriosclerotic heart disease) Current visit: No Status: Chronic Status post 5 stents placed. Continue Plavix and Lopressor. (8) Diabetic gastroparesis Current visit: No Status: Suspected Reglan will be held since she is getting IV Phenergan for nausea. Internal Medicine - H&P: HPI Chief complaint: Vomiting, diarrhea, and back pain Admitted From: Emergency Dept Plans for Post Hospital Care: Home History of present illness: Ms. Taylor is a 58 year old female who came to emergency room stating she had 2 day history of multiple episodes of nonbloody diarrhea. She reports vomiting onset stay with several episodes of nonbloody emesis. She had some abdominal discomfort and acute worsening of chronic back pain. She came to emergency room was evaluated and found to have acute renal insufficiency and leukocytosis with left shift. She was admitted to [facility] floor for ongoing care needs. She was hospitalized for similar complaints November 2018 as well as April and June 2016. She reports she has had several episodes similar to this previously since undergoing cholecystectomy in 2012. She had EGD in 2013 and again in early 2015 without significant pathology seen. She had colonoscopy in 2013 with 2 colon polyps removed but otherwise no significant pathology noted. She had MRI of the abdomen 11/24/2014 which showed a stable left adrenal adenoma and stable benign pancreatic body cyst measuring 3 mm. She had a nuclear medicine gastric emptying study December 2015 which showed minimal delay in emptying at 4 hours postprandial. Abdominal/pelvic CT in the ER showed no acute findings to explain her abdominal/back pain. She has had 8 abdominal/pelvic CT scans since April 2015. She reports low back pain has also been present since approximately 2012. Thoracic spine MRI April 2016 showed mild degenerative changes with small disc herniations in the mid thoracic spine. CT of thoracic spine 01/08/2017 showed no acute abnormalities. She states she was referred to pain clinic few years ago but did not keep the appointment. She has diagnoses of DJD and rheumatoid arthritis. Past Med Surg Social Fam HX - Past Medical History Medical history: arthritis, atrial fibrillation, cancer, cardiomyopathy, COPD, coronary artery disease, diabetes, GERD, glaucoma, hyperlipidemia, hypertension, migraine, myocardial infarction, osteoporosis, peripheral artery disease, RA, other Additional medical history: Cervical cancer, Psychiatric history: panic disorder - Past Surgical History Surgical History: angioplasty/stent, , cancer surgery, cataract, cholecystectomy, other Additional surgical history: Triple Bypass 2017 - Social History Smoking Status: Former smoker Packs per day: 0 Smokeless Tobacco Status: No Alcohol use: none Drug use: marijuana, other - Family History Father Adopted: No Family Member Ethnicity: Non- Living Status: Hx Family Cardiac Disorders: Yes (OR at 58) Hx Family Respiratory Disorders: No Hx Family Cancer: No Hx Family GI Disorders: No Hx Family Endocrine Disorder: No Hx Family Neuromuscular Disorders: No Hx Family Neurologic Disorders: No Hx Family HEENT Disorders: No Hx Family Autoimmune Disorders: No Mother Adopted: No Family Member Ethnicity: Non- Living Status: Hx Family Cardiac Disorders: No Hx Family Respiratory Disorders: Yes Hx Family Cancer: Yes (Brain cancer) Hx Family GI Disorders: No Hx Family Endocrine Disorder: No Hx Family Neuromuscular Disorders: No Hx Family Neurologic Disorders: No Hx Family HEENT Disorders: No Hx Family Autoimmune Disorders: No Internal Medicine - H&P: Meds Albuterol Sulfate 90 mcg IH Q6H PRN 03/22/19 [History] Atorvastatin 80 mg PO DAILY 03/22/19 [History] Basaglar Kwikpen U-100 55 units SQ BID 03/22/19 [History] Furosemide 40 mg PO DAILY 03/22/19 [History] Gabapentin 600 mg PO TID 03/22/19 [History] Lisinopril-HCTZ 20-12.5 20 mg PO DAILY 03/22/19 [History] Metoclopramide 10 mg PO QID 03/22/19 [History] Metoprolol Tartrate 25 mg PO BID 03/22/19 [History] Novolog Flexpen 15 units SQ TID 03/22/19 [History] Omeprazole 20 mg PO DAILY 03/22/19 [History] Pioglitazone HCl 30 mg PO DAILY 03/22/19 [History] Plavix 75 mg PO DAILY 03/22/19 [History] Promethazine 25 mg PO Q6H PRN 03/22/19 [History] Zofran 4 mg SL Q4H PRN 03/22/19 [History] Allergy/AdvReac Type Severity Reaction Status Date / Time codeine AdvReac Vomiting Verified 03/22/19 11:49 All Systems PM: A 10-system review of systems was performed and is negative for pertinent findings except as documented above in the HPI. Review of systems: Review of systems from her November 2018 [facility] hospitalization were reviewed and revised as below. Gen.: Her weight increased from 82.1 kg June 2016 to 86.636 kg on admission November 2018 but has decreased to 82.1 kg today Cardiovascular: She has history of hypertension and known ASHD status post OR in 1999 and in October 2014. She had heart catheterizations after each infarct and has a total of [address]. She reports having 3 vessel CABG surgery at [facility] January 2017. She denies heart failure DVT or pulmonary embolus Respiratory: She smoked from age [age] up to 3 packs per day. She does not have documented chronic lung disease and does not wear home oxygen. She has not been tested for sleep apnea. GI: As per history of present illness : She denies hematuria dysuria or kidney stones Neurologic: She denies large distribution strokes or seizures Endocrine: She was diagnosed DM 2 approximately 2000. She has hyperlipidemia and denies known thyroid disease Hematology/oncology: She had cervical cancer and was treated with a LEEP procedure many years ago which apparently was curative. She denies other internal malignancies, blood disorders or anemia Psychiatric: She denies anxiety depression or other mental health issues Musculoskeletal: As per history of present illness - Constitutional Vitals: Temp Pulse Resp BP Pulse Ox 98.4 F 95 20 182/97 96 03/22/19 12:00 03/22/19 13:52 03/22/19 13:52 03/22/19 13:52 03/22/19 13:52 Exam: Gen.: She is a well-developed well-nourished female sitting on the side of bed who appears in [id number] distress and moaning in pain. When distracted however she appears to have significantly less pain. She had dry heaves occasionally during H&P. HEENT: Head is atraumatic and normocephalic. Eyes: EOMI. There is no scleral icterus. Mouth: Mucosa is moist. Neck: Supple and nontender. There is no thyromegaly or adenopathy noted. Heart: Regular without murmurs gallops or ectopics Lungs: No wheezes or crackles are heard. Abdomen: Soft and nontender. Bowel sounds are diminished. No masses or guarding are noted. Extremities: There is trace pitting edema of the left lower leg and no significant pitting edema of the right lower leg. Neurologic: Mental status: She is talkative and a good historian. Cranial nerves: Smile is symmetric. Forehead wrinkles bilaterally. Tongue protrudes midline. EOMI. Motor: She moves her arms and legs well randomly to observation without further formal testing done. Skin: Warm and dry Internal Med - H&P Results - Labs CBC & Chem 7: 03/22/19 12:14 03/22/19 12:14 Labs: Short CBC 03/22/19 Range/Units 12:14 WBC 16.8 H (4.3-11.1) K/mcL Hgb 13.0 (11.5-15.4) g/dL Hct 40.4 (35.3-44.9) % Plt Count 155 (140-400) K/mcL Neutrophils # 14.1 H (1.6-8.9) K/mcL BMP 03/22/19 12:14 Sodium 143 Potassium 4.1 Chloride 106 Carbon Dioxide 29 BUN 36 H Creatinine 1.23 H Glucose 197 H Calcium 9.8 Liver Function 03/22/19 Range/Units 12:14 Total Bilirubin 0.4 (0.3-1.0) mg/dL Direct Bilirubin 0.1 (0.0-0.2) mg/dL AST 25 (13-39) Units/L ALT 20 (7-52) Units/L Alkaline Phosphatase 118 H (34-104) Units/L Albumin 4.2 (3.5-5.7) g/dL Urine 03/22/19 Range/Units 12:00 Urine Color Yellow (Yellow) Urine Clarity Clear (Clear) Urine pH 5.0 (5.0-8.0) pH Units Ur Specific [place] >= 1.030 H (1.010-1.025) Urine Protein 100 H (Neg-Trace) mg/dL Urine Glucose (UA) Normal (Normal) mg/dL - Impressions ITS Impressions Abdomen/Pelvis CT 03/22/19 12:03 IMPRESSION: No acute intra-abdominal abnormality identified. Specifically no traumatic injury identified. No finding worrisome for metastatic disease on the noncontrast images. D/ / Luis Enrique Lindsey MD / Luis Enrique Lindsey MD Interpreting Provider: Luis Enrique Lindsey MD
[2019-03-22] MEDS: Gabapentin 300 MG CAPSULE PO SCH (19:45)
[2019-03-22] MEDS: 0.45 % Sodium Chloride w/KCl 20 MEQ/1,000 ML MLS IVC SCH (19:49)
[2019-03-22] MEDS ORDERED: Insulin DETEMIR 100 UNIT/ML per UNIT SQ ONE (21:00)
[2019-03-22] MEDS: *HR* LORazepam 2 MG/ML VIAL IVP PRN (23:35)
[2019-03-23] MEDS: 0.45 % Sodium Chloride w/KCl 20 MEQ/1,000 ML MLS IVC SCH ×2 (03:30→17:15)
[2019-03-23] MEDS: *HR* Promethazine 25 MG/ML VIAL IVP PRN ×2 (04:39→08:07)
[2019-03-23] MEDS: *HR* LORazepam 2 MG/ML VIAL IVP PRN (05:38)
[2019-03-23] MEDS: Ondansetron 4 MG/2 ML VIAL IVP PRN (05:38)
[2019-03-23 07:34] LABS: Basophils # 0.1 K/mcL (0.0-0.2); Basophils % 0.3 %; Eosinophils % 0.1 %; Hematocrit 41.2 % (35.3-44.9); Hemoglobin 13.7 g/dL (11.5-15.4); Immature Granulocytes % 0.5 % (0-4); Lymphocytes # 1.6 K/mcL (0.6-4.6); Lymphocytes % 9.6 %; Mean Corpuscular HGB Conc 33.3 g/dL (31.6-35.5); Mean Corpuscular Hemoglobin 31.2 pg (28.0-33.3); Mean Corpuscular Volume 93.8 fL (83.0-100.0); Mean Platelet Volume 12.7 fL (9.4-12.4); Monocytes # 0.9 K/mcL (0.0-1.3); Monocytes % 5.6 %; Platelet Count 130 K/mcL (140-400); Red Blood Count 4.39 M/mcL (3.82-4.97); Red Cell Distribution Width 13.9 % (11.5-14.5); Segmented Neutrophils % 83.9 %; White Blood Count 16.5 K/mcL (4.3-11.1)
[2019-03-23 07:40] LABS: Neutrophils # 13.8 K/mcL (1.6-8.9)
[2019-03-23 07:53] LABS: BUN/Creatinine Ratio 27 (6-26); Blood Urea Nitrogen 24 mg/dL (8-23); Calcium 9.6 mg/dL (8.6-10.3); Carbon Dioxide 28 mEq/L (23-29); Chloride 102 mEq/L (98-107); Glucose 206 mg/dL (70-105); Osmolality,Calculated 298 (280-300); Potassium 4.1 mEq/L (3.5-5.1); Sodium 139 mEq/L (136-145); eGFR For African Americans > 60 (> 60); eGFR For Non-African Americans > 60 (> 60)
[2019-03-23] MEDS: Insulin LISPRO 300 UNITS/3 ML VIAL SQ SCH ×6 (08:03→17:14)
[2019-03-23] MEDS: Gabapentin 300 MG CAPSULE PO SCH ×2 (08:06→17:42)
[2019-03-23 08:16] LABS: Magnesium 1.5 mg/dL (1.6-2.6); Phosphorous 2.2 mg/dL (2.7-4.5)
[2019-03-23] MEDS ORDERED: *HR* Pioglitazone 15 MG TABLET PO SCH (09:00)
[2019-03-23] MEDS ORDERED: Insulin DETEMIR 100 UNIT/ML X5UNITS SQ SCH (09:00)
[2019-03-23] MEDS ORDERED: hydroCHLOROthiazide 25 MG TABLET PO SCH (09:00)
[2019-03-23] MEDS ORDERED: Furosemide 40 MG TABLET PO SCH (09:00)
[2019-03-23] MEDS ORDERED: Lisinopril 20 MG TABLET PO SCH (09:00)
[2019-03-23] MEDS ORDERED: Magnesium Oxide 400 MG TABLET PO SCH (10:30)
[2019-03-23 10:32] LABS: Estimated Average Glucose 186 mg/dl
--- NOTE | 2019-03-23 10:52 | Internal Med Progress Note ---
Date of Encounter: 03/23/19 Time of Encounter: 10:20 - Assessment and plan (1) Gastroenteritis Current Visit: No Status: Acute Assessment and plan: March 23. IV fluids have been ordered. Anti-emetics will be given as needed. (2) Azotemia Current Visit: No Status: Acute Assessment and plan: March 23. BUN and creatinine have decreased 24 and 0.90 respectively with estimated GFR > 60. Continue IV fluids and monitor labs. (3) Intractable back pain Current Visit: Yes Status: Chronic Assessment and plan: March 23. Workup to date has not shown etiology. (4) Leukocytosis Current Visit: Yes Status: Chronic Assessment and plan: March 23. Chronic. Continue to monitor. Qualifiers: Leukocytosis type: unspecified Qualified Code(s): D72.829 - Elevated white blood cell count, unspecified (5) Hypomagnesemia Current Visit: Yes Status: Acute Assessment and plan: March 23. Magnesium level 1.5. Start supplemental magnesium oxide. (6) Diarrhea Current Visit: No Status: Chronic Assessment and plan: March 23. She did not mention this today. Continue to monitor. Qualifiers: Diarrhea type: unspecified type Qualified Code(s): R19.7 - Diarrhea, unspecified (7) ASHD (arteriosclerotic heart disease) Current Visit: No Status: Chronic Assessment and plan: March 23. Status post 5 stents placed. Continue Plavix and Lopressor. (8) Diabetic gastroparesis Current Visit: No Status: Suspected Assessment and plan: March 23. Continue IV Phenergan and hold Reglan. (9) Hypophosphatemia Current Visit: Yes Status: Acute Assessment and plan: March 23. Phosphorus level low at 2.2. Supplemental Neutra-Phos will be ordered. (10) DM type 2 (diabetes mellitus, type 2) Current Visit: Yes Status: Chronic Assessment and plan: March 23. Hemoglobin A1c 8.1%. Continue basal insulin, Actos, and Accu-Cheks with SSI. 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 No new problems have arisen. She reports she is still having dry heaves. Her back pain has slightly lessened. - Constitutional Vitals: Temp Pulse Resp BP Pulse Ox 98.8 F 84 16 174/92 96 03/23/19 10:42 03/23/19 10:42 03/23/19 10:42 03/23/19 10:42 03/23/19 10:42 Exam: She is sitting on the side of bed and appears in no acute distress. She is slightly lethargic from recent administration of Phenergan. I reviewed her medications and lab results. Internal Medicine: Result - Labs CBC & Chem 7: 03/23/19 07:24 03/23/19 07:24 Labs: Short CBC 03/22/19 03/23/19 Range/Units 12:14 07:24 WBC 16.8 H 16.5 H (4.3-11.1) K/mcL Hgb 13.0 13.7 (11.5-15.4) g/dL Hct 40.4 41.2 (35.3-44.9) % Plt Count 155 130 L (140-400) K/mcL Neutrophils # 14.1 H 13.8 H (1.6-8.9) K/mcL BMP 03/22/19 03/23/19 12:14 07:24 Sodium 143 139 Potassium 4.1 4.1 Chloride 106 102 Carbon Dioxide 29 28 BUN 36 H 24 H Creatinine 1.23 H 0.90 Glucose 197 H 206 H Calcium 9.8 9.6 Liver Function 03/22/19 Range/Units 12:14 Total Bilirubin 0.4 (0.3-1.0) mg/dL Direct Bilirubin 0.1 (0.0-0.2) mg/dL AST 25 (13-39) Units/L ALT 20 (7-52) Units/L Alkaline Phosphatase 118 H (34-104) Units/L Albumin 4.2 (3.5-5.7) g/dL Urine 03/22/19 Range/Units 12:00 Urine Color Yellow (Yellow) Urine Clarity Clear (Clear) Urine pH 5.0 (5.0-8.0) pH Units Ur Specific [place] >= 1.030 H (1.010-1.025) Urine Protein 100 H (Neg-Trace) mg/dL Urine Glucose (UA) Normal (Normal) mg/dL - Impressions Impressions Abdomen/Pelvis CT 03/22/19 12:03 IMPRESSION: No acute intra-abdominal abnormality identified. Specifically no traumatic injury identified. No finding worrisome for metastatic disease on the noncontrast images. D/ / Luis Enrique Lindsey MD / Luis Enrique Lindsey MD Interpreting Provider: Luis Enrique Lindsey MD Consult Discharge Plan - Plan Referrals: Manoj Jay CNP [Primary Care Provider] - 1 week
[2019-03-23 16:46] VITALS: BP 161/84
--- NOTE | 2019-03-23 19:21 | Discharge Summary ---
Orders not resulted at time of discharge: Pending orders 03/22/19 12:00 Culture,Urine [RM] Stat 03/23/19 10:54 Fecal Lactoferrin [RM] Routine Date of Encounter: 03/23/19 Time of Encounter: 19:10 - Discharge Diagnosis (1) Gastroenteritis Priority: Primary Status: Acute (2) Azotemia Priority: Secondary Status: Resolved (3) Intractable back pain Priority: Secondary Status: Chronic (4) Leukocytosis Priority: Secondary Status: Chronic Qualifiers: Leukocytosis type: unspecified Qualified Code(s): D72.829 - Elevated white blood cell count, unspecified (5) Hypomagnesemia Priority: Secondary Status: Acute (6) Diarrhea Priority: Secondary Status: Chronic Qualifiers: Diarrhea type: unspecified type Qualified Code(s): R19.7 - Diarrhea, unspecified (7) ASHD (arteriosclerotic heart disease) Priority: Secondary Status: Chronic (8) Diabetic gastroparesis Priority: Secondary Status: Suspected (9) Hypophosphatemia Priority: Secondary Status: Acute (10) DM type 2 (diabetes mellitus, type 2) Priority: Secondary Status: Chronic Qualifiers: 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 Taylor is a 58 year old female who came to emergency room stating she had 2 day history of multiple episodes of nonbloody diarrhea. She reports vomiting onset stay with several episodes of nonbloody emesis. She had some abdominal discomfort and acute worsening of chronic back pain. She came to emergency room was evaluated and found to have acute renal insufficiency and leukocytosis with left shift. She was admitted to [facility] floor for ongoing care needs. Initial orders were written by the emergency room physician. I saw her on March 22 and performed a history and physical. She was given IV fluids. Antiemetics were ordered for prn use. She felt slightly improved when I saw her on March 23. She still complained of having dry heaves. She did not report significant ongoing diarrhea. Lab work on March 23 showed WBC 16.5 with 83.9% segs. Review of past labs showed elevated WBC with variable neutrophilia on all 38 CBC tests since February 2014. Urine culture preliminary report at time of leaving AMA show gram- negative rods. Her PCP can follow up and treat as needed. BUN and creatinine improved to 24 and 0.90 respectively with estimated GFR> 60. Her phosphorus level returned low at 2.2. She was started on Neutra-Phos. Magnesium level returned slightly low at 1.5. She was started on magnesium oxide. On the afternoon of March 23 she decided she wished to go home and signed out AMA. I had encouraged her during the visit that morning to seek referral from her PCP to determine if possible the etiology of her recurrent episodes of vomiting and chronic elevated WBC. Her PCP can monitor magnesium, phosphorus, azotemia, and other labs. - Time Spent with Patient Total time spent providing and/or coordinating discharge services: - Discharge Medications Prescriptions: No Action Zofran 4 mg SL Q4H PRN PRN Reason: Nausea Promethazine 25 mg PO Q6H PRN PRN Reason: Nausea Plavix 75 mg PO DAILY Pioglitazone HCl 30 mg PO DAILY Omeprazole 20 mg PO DAILY Novolog Flexpen 15 units SQ TID Metoprolol Tartrate 25 mg PO BID Metoclopramide 10 mg PO QID Lisinopril-HCTZ 20-12.5 20 mg PO DAILY Gabapentin 600 mg PO TID Furosemide 40 mg PO DAILY Basaglar Kwikpen U-100 55 units SQ BID Atorvastatin 80 mg PO DAILY Albuterol Sulfate 90 mcg IH Q6H PRN PRN Reason: Shortness Of Breath/Wheezing Home Medications: Albuterol Sulfate 90 mcg IH Q6H PRN 03/22/19 [History] Atorvastatin 80 mg PO DAILY 03/22/19 [History] Basaglar Kwikpen U-100 55 units SQ BID 03/22/19 [History] Furosemide 40 mg PO DAILY 03/22/19 [History] Gabapentin 600 mg PO TID 03/22/19 [History] Lisinopril-HCTZ 20-12.5 20 mg PO DAILY 03/22/19 [History] Metoclopramide 10 mg PO QID 03/22/19 [History] Metoprolol Tartrate 25 mg PO BID 03/22/19 [History] Novolog Flexpen 15 units SQ TID 03/22/19 [History] Omeprazole 20 mg PO DAILY 03/22/19 [History] Pioglitazone HCl 30 mg PO DAILY 03/22/19 [History] Plavix 75 mg PO DAILY 03/22/19 [History] Promethazine 25 mg PO Q6H PRN 03/22/19 [History] Zofran 4 mg SL Q4H PRN 03/22/19 [History] Allergies/Adverse Reactions: Allergy/AdvReac Type Severity Reaction Status Date / Time codeine AdvReac Vomiting Verified 03/22/19 11:49 Date of admission: 03/22/19 13:50 Primary care physician: Manoj Jay CNP - Constitutional Vitals: Temp Pulse Resp BP Pulse Ox 98.0 F 88 16 161/84 98 03/23/19 14:44 03/23/19 14:44 03/23/19 14:44 03/23/19 14:44 03/23/19 14:44 - Patient Status Disposition: Left Against Medical Advice Condition: Fair - Discharge Instructions Follow Up With: Manoj Jay CNP [Primary Care Provider] - 1 week
== END 2019-03-23 18:25 | disposition left against medical advice (07) ==
LOC: EMEROOPIK 11:48 → INPPIK 11:48
PROVIDERS: ADMIT Internal Medicine; ATTEND Internal Medicine

== ENCOUNTER 2019-06-23 00:52 | Observation (INO) ==
[2019-06-23] MEDS ORDERED: 0.9 % Sodium Chloride 1,000 ML IVC ONE (01:19)
[2019-06-23] MEDS ORDERED: Ondansetron 4 MG/2 ML VIAL IVP ONE (01:19)
[2019-06-23 02:06] LABS: Basophils # 0.1 K/mcL (0.0-0.2); Basophils % 0.6 %; Eosinophils # 0.4 K/mcL (0.0-0.6); Eosinophils % 2.8 %; Hematocrit 35.7 % (35.3-44.9); Hemoglobin 11.8 g/dL (11.5-15.4); Immature Granulocytes % 0.6 % (0-4); Lymphocytes # 4.8 K/mcL (0.6-4.6); Lymphocytes % 31.4 %; Mean Corpuscular HGB Conc 33.1 g/dL (31.6-35.5); Mean Corpuscular Hemoglobin 31.7 pg (28.0-33.3); Mean Platelet Volume 12.4 fL (9.4-12.4); Monocytes # 1.3 K/mcL (0.0-1.3); Monocytes % 8.2 %; Neutrophils # 8.6 K/mcL (1.6-8.9); Platelet Count 110 K/mcL (140-400); Red Blood Count 3.72 M/mcL (3.82-4.97); Red Cell Distribution Width 13.4 % (11.5-14.5); Segmented Neutrophils % 56.4 %; White Blood Count 15.2 K/mcL (4.3-11.1)
[2019-06-23] MEDS ORDERED: Ondansetron ODT 4 MG TAB.RAPDIS SL ONE ×2 (02:14→03:12)
[2019-06-23 02:24] LABS: Albumin 3.7 g/dL (3.5-5.7); Albumin/Globulin Ratio 1.3 (1.1-2.2); Bilirubin,Indirect 0.4 mg/dL (0.0-1.0); Bilirubin,Total 0.4 mg/dL (0.3-1.0); Globulin 2.9 g/dL (2.4-3.5); Potassium 3.4 mEq/L (3.5-5.1); Total Protein 6.6 g/dL (6.4-8.9)
[2019-06-23] MEDS ORDERED: *HR* Dextrose 50 % in Water (Vial) 50 ML VIAL IVP PRN (03:12)
[2019-06-23] MEDS ORDERED: Dextrose Gel 15 GM/37.5 ML TUBE PO PRN ×2 (03:12)
[2019-06-23] MEDS ORDERED: 0.9 % Sodium Chloride 1,000 ML IVC SCH (03:12)
[2019-06-23] MEDS ORDERED: D5% in Water 1,000 ML IVC PRN (03:12)
[2019-06-23] MEDS ORDERED: Ondansetron 4 MG/2 ML VIAL IVP PRN (03:12)
[2019-06-23] MEDS ORDERED: Naloxone 0.4 MG/ML INJ IVP PRN (03:12)
[2019-06-23] MEDS ORDERED: Insulin LISPRO 300 UNITS/3 ML VIAL SQ SCH ×2 (07:30)
[2019-06-23] MEDS ORDERED: Ondansetron ODT 4 MG TAB.RAPDIS SL PRN (08:00)
[2019-06-23] MEDS ORDERED: *HR* Pioglitazone 15 MG TABLET PO SCH (09:00)
[2019-06-23] MEDS ORDERED: Gabapentin 300 MG CAPSULE PO SCH (09:00)
[2019-06-23] MEDS ORDERED: Insulin DETEMIR 100 UNIT/ML per UNIT SQ SCH (09:00)
[2019-06-23] MEDS ORDERED: Aspirin Enteric Coated 81 MG Tablet PO SCH (09:00)
[2019-06-23] MEDS ORDERED: Insulin DETEMIR 100 UNIT/ML X5UNITS SQ SCH (09:15)
[2019-06-23] MEDS ORDERED: Insulin DETEMIR 100 UNIT/ML X5UNITS SQ ONE (09:30)
[2019-06-23 10:06] LABS: Calcium 8.7 mg/dL (8.6-10.3); Potassium 3.5 mEq/L (3.5-5.1)
[2019-06-23 11:32] VITALS: BP 128/67
== END 2019-06-23 13:07 | disposition home or self-care (01) ==
LOC: EMEROOPIK 00:52 → INPPIK 00:52
PROVIDERS: ADMIT Internal Medicine; ATTEND Internal Medicine